=== PATIENT | female | born 1940 | race Caucasian/White ===

== ENCOUNTER 2020-07-12 12:40 | Emergency (ER) | payer OTHER ==
[~2020-07-12] VITALS: Ht 154.9 cm; Wt 120.2 kg
[~2020-07-12 12:40] MED LIST: LOSA25 PO
[2020-07-12 13:19] LABS: BASOPHILS ABSOLUTE AUTO 0.04 K/mm3 (0.00-0.23); BASOPHILS PERCENT AUTO 1 % (0-2); EOSINOPHILS ABSOLUTE AUTO 0.19 K/mm3 (0.00-0.68); EOSINOPHILS PERCENT AUTO 3 % (0-6); Hematocrit 42.6 % (33.0-51.0); Hemoglobin 14.2 g/dL (11.5-16.0); IMMATURE GRAN ABSOLUTE AUTO 0.02 K/mm3 (0.00-0.10); IMMATURE GRAN PERCENT AUTO 0 % (0-1); LYMPHOCYTES ABSOLUTE AUTO 2.37 K/mm3 (0.84-5.20); LYMPHOCYTES PERCENT AUTO 32 % (21-46); MONOCYTES ABSOLUTE AUTO 0.61 K/mm3 (0.16-1.47); MONOCYTES PERCENT AUTO 8 % (4-13); Mean Corpuscular HGB 31.8 pg (26.0-34.0); Mean Corpuscular HGB Conc 33.3 g/dL (31.5-36.5); Mean Corpuscular Volume 95 fL (80-100); Mean Platelet Volume 10.3 fL (9.1-12.4); NEUTROPHILS ABSOLUTE AUTO 4.28 K/mm3 (1.96-9.15); NEUTROPHILS PERCENT AUTO 57 % (41-73); Platelet Count 281 K/mm3 (150-400); RDW Coefficient Variation 13.6 % (11.7-14.2); RDW Standard Deviation 48.7 fL (35.1-46.3); Red Blood Cell Count 4.47 M/mm3 (3.80-5.20); White Blood Cell Count 7.51 K/mm3 (4.00-11.30)
[2020-07-12 13:40] LABS: Alanine Aminotransfer (ALT/SGP 27 U/L (12-78); Albumin, Blood 3.6 g/dL (3.4-5.0); Albumin/Globulin Ratio 0.8 (0.8-1.8); Alk Phos 99 U/L (50-136); Anion Gap 5 mmol/L (6-16); Aspartate Aminotrans (AST/SGOT 41 U/L (12-37); Bilirubin, Total 0.6 mg/dL (0.1-1.0); Blood Urea Nitrogen 14 mg/dL (8-24); Bun/Creatinine Ratio 19.9 (12.0-20.0); CO2, Blood 25 mmol/L (21-32); Calcium, Blood 9.5 mg/dL (8.5-10.1); Chloride, Blood 110 mmol/L (98-108); Globulin, Blood 4.3 g/dL (2.2-4.0); Glomerular Filtration Rate >60 (60-); Glucose, Blood 124 mg/dL (70-99); Potassium, Blood 4.8 mmol/L (3.5-5.5); Sodium, Blood 140 mmol/L (136-145); Total Protein, Blood 7.9 g/dL (6.4-8.2); Troponin I <0.015 ng/mL (0.000-0.040)
[2020-07-12] MEDS ORDERED: FURO80 PO (17:12)
[2020-07-12] MEDS ORDERED: OLME20 PO (17:12)
[2020-07-12] MEDS ORDERED: ASPI81CH PO (17:13)
[2020-07-12] MEDS ORDERED: OMEP20ER PO (17:13)
[2020-07-12] MEDS ORDERED: K-Dur20 MEQ PO (19:34)
== END 2020-07-12 19:38 | disposition home or self-care (01) ==
LOC: ER 12:40
PROVIDERS: Emergency Medicine
DX: R60.0 Localized edema (principal); I10 Essential (primary) hypertension; F17.210 Nicotine dependence, cigarettes, uncomplicated; Z88.1 Allergy status to other antibiotic agents; Z88.5 Allergy status to narcotic agent; Z88.6 Allergy status to analgesic agent; Z88.8 Allergy status to other drugs, medicaments and biological substances; Z79.82 Long term (current) use of aspirin; Z79.899 Other long term (current) drug therapy
CPT/HCPCS: 36415; 80053; 83880; 84484; 85025; 96374; 99284-25; J1940

== ENCOUNTER → 2021-03-29 | Outpatient (CLI) | payer OTHER ==
[~2021-03-29] MED LIST changes: +ASPI81CH PO; +FURO80 PO; +K-Dur20 MEQ PO; +OLME20 PO; +OMEP20ER PO
[2021-03-29 15:30] LABS: BASOPHILS ABSOLUTE AUTO 0.05 K/mm3 (0.00-0.23); BASOPHILS PERCENT AUTO 1 % (0-2); EOSINOPHILS ABSOLUTE AUTO 0.16 K/mm3 (0.00-0.68); EOSINOPHILS PERCENT AUTO 2 % (0-6); Hematocrit 42.4 % (33.0-51.0); Hemoglobin 13.9 g/dL (11.5-16.0); IMMATURE GRAN ABSOLUTE AUTO 0.02 K/mm3 (0.00-0.10); IMMATURE GRAN PERCENT AUTO 0 % (0-1); LYMPHOCYTES ABSOLUTE AUTO 2.26 K/mm3 (0.84-5.20); LYMPHOCYTES PERCENT AUTO 24 % (21-46); MONOCYTES ABSOLUTE AUTO 0.72 K/mm3 (0.16-1.47); MONOCYTES PERCENT AUTO 8 % (4-13); Mean Corpuscular HGB 31.8 pg (26.0-34.0); Mean Corpuscular HGB Conc 32.8 g/dL (31.5-36.5); Mean Corpuscular Volume 97 fL (80-100); Mean Platelet Volume 10.8 fL (9.1-12.4); NEUTROPHILS ABSOLUTE AUTO 6.38 K/mm3 (1.96-9.15); NEUTROPHILS PERCENT AUTO 67 % (41-73); Platelet Count 291 K/mm3 (150-400); RDW Coefficient Variation 13.6 % (11.7-14.2); RDW Standard Deviation 48.7 fL (35.1-46.3); Red Blood Cell Count 4.37 M/mm3 (3.80-5.20); White Blood Cell Count 9.59 K/mm3 (4.00-11.30)
[2021-03-29 15:46] LABS: Alanine Aminotransfer (ALT/SGP 25 U/L (12-78); Albumin, Blood 3.7 g/dL (3.4-5.0); Alk Phos 97 U/L (50-136); Anion Gap 4 mmol/L (6-16); Aspartate Aminotrans (AST/SGOT 24 U/L (12-37); Bilirubin, Total 0.5 mg/dL (0.1-1.0); Blood Urea Nitrogen 17 mg/dL (8-24); CHOL/HDL RATIO 4.6; CO2, Blood 29 mmol/L (21-32); Calcium, Blood 9.1 mg/dL (8.5-10.1); Chloride, Blood 107 mmol/L (98-108); Cholesterol 188 mg/dL (50-200); Creatinine, Blood 0.81 mg/dL (0.40-1.00); Globulin, Blood 3.8 g/dL (2.2-4.0); Glomerular Filtration Rate >60 (60-); Glucose, Blood 144 mg/dL (70-99); HDL Cholesterol 41 mg/dL (>39); LDL/HDL RATIO 2.4; Low Density Lipoprotein Chol 96 mg/dL (0-110); Sodium, Blood 140 mmol/L (136-145); Total Protein, Blood 7.5 g/dL (6.4-8.2); Triglycerides 253 mg/dL (30-160); Very Low Density Lipoprot Chol 50 mg/dL (6-32)
== END | disposition home or self-care (01) ==
LOC: LAB 14:22 → LAB SHORT 14:22
PROVIDERS: Nurse Practitioner Family
DX: E11.51 Type 2 diabetes mellitus with diabetic peripheral angiopathy without gangrene (principal); I70.90 Unspecified atherosclerosis
CPT/HCPCS: 80053; 80061; 83036; 85025

== ENCOUNTER 2021-05-26 13:16 | Emergency (ER) | payer MEDICARE ==
[~2021-05-26] VITALS: Ht 157.5 cm; Wt 127.0 kg
[2021-05-26 14:48] LABS: BASOPHILS ABSOLUTE AUTO 0.05 K/mm3 (0.00-0.23); BASOPHILS PERCENT AUTO 1 % (0-2); EOSINOPHILS PERCENT AUTO 3 % (0-6); Hemoglobin 14.6 g/dL (11.5-16.0); IMMATURE GRAN ABSOLUTE AUTO 0.02 K/mm3 (0.00-0.10); IMMATURE GRAN PERCENT AUTO 0 % (0-1); LYMPHOCYTES PERCENT AUTO 27 % (21-46); MONOCYTES ABSOLUTE AUTO 0.57 K/mm3 (0.16-1.47); MONOCYTES PERCENT AUTO 7 % (4-13); Mean Corpuscular HGB 31.4 pg (26.0-34.0); Mean Corpuscular HGB Conc 33.2 g/dL (31.5-36.5); Mean Corpuscular Volume 95 fL (80-100); Mean Platelet Volume 9.8 fL (9.1-12.4); NEUTROPHILS ABSOLUTE AUTO 4.92 K/mm3 (1.96-9.15); NEUTROPHILS PERCENT AUTO 63 % (41-73); Platelet Count 288 K/mm3 (150-400); RDW Coefficient Variation 13.1 % (11.7-14.2); RDW Standard Deviation 45.8 fL (35.1-46.3); Red Blood Cell Count 4.65 M/mm3 (3.80-5.20); White Blood Cell Count 7.86 K/mm3 (4.00-11.30)
[2021-05-26 15:19] LABS: Alanine Aminotransfer (ALT/SGP 26 U/L (12-78); Albumin, Blood 3.7 g/dL (3.4-5.0); Albumin/Globulin Ratio 0.8 (0.8-1.8); Alk Phos 93 U/L (50-136); Anion Gap 7 mmol/L (6-16); Aspartate Aminotrans (AST/SGOT 28 U/L (12-37); Bilirubin, Total 0.4 mg/dL (0.1-1.0); Blood Urea Nitrogen 20 mg/dL (8-24); Bun/Creatinine Ratio 26.7 (12.0-20.0); CO2, Blood 23 mmol/L (21-32); Calcium, Blood 9.7 mg/dL (8.5-10.1); Chloride, Blood 108 mmol/L (98-108); Creatinine, Blood 0.75 mg/dL (0.40-1.00); Globulin, Blood 4.4 g/dL (2.2-4.0); Glomerular Filtration Rate >60 (60-); Glucose, Blood 122 mg/dL (70-99); Potassium, Blood 4.2 mmol/L (3.5-5.5); Sodium, Blood 138 mmol/L (136-145); Total Protein, Blood 8.1 g/dL (6.4-8.2); Troponin I <0.015 ng/mL (0.000-0.040)
== END 2021-05-26 17:46 | disposition left against medical advice (07) ==
LOC: ER 13:16
PROVIDERS: Physician Assistant
DX: R03.0 Elevated blood-pressure reading, without diagnosis of hypertension (principal); Z53.21 Procedure and treatment not carried out due to patient leaving prior to being seen by health care provider
CPT/HCPCS: 36415; 71046; 80053; 84484; 85025; 93005; 93010; 99283-25

== ENCOUNTER → 2021-09-25 | Outpatient (CLI) | payer MEDICARE ==
[2021-09-25 18:29] LABS: Potassium, Blood 4.1 mmol/L (3.5-5.5)
== END | disposition home or self-care (01) ==
LOC: LAB SHORT 17:10 → LAB 17:10
PROVIDERS: Nurse Practitioner Family
DX: E87.6 Hypokalemia (principal)
CPT/HCPCS: 80051

== ENCOUNTER → 2021-12-06 | Outpatient (CLI) | payer MEDICARE ==
[2021-12-06 18:50] LABS: Potassium, Blood 4.2 mmol/L (3.5-5.5)
== END | disposition home or self-care (01) ==
LOC: LAB SHORT 16:10 → LAB FUT 09-25 15:10
PROVIDERS: Nurse Practitioner Family
DX: E87.6 Hypokalemia (principal)
CPT/HCPCS: 36415; 80051

== ENCOUNTER → 2022-09-04 | Outpatient (CLI) | payer OTHER ==
[~2022-09-04] MED LIST changes: +COLCHICINE0.6 MG PO; +Norco 5-325 Ta1 EACH PO
[2022-09-05 11:01] LABS: Bun/Creatinine Ratio 35.3 (12.0-20.0); Creatinine, Blood 1.36 mg/dL (0.40-1.00); Potassium, Blood 4.1 mmol/L (3.5-5.5)
== END ==
LOC: LAB 16:15 → LAB SHORT 16:15
PROVIDERS: Internal Medicine
DX: M10.9 Gout, unspecified (principal); E11.65 Type 2 diabetes mellitus with hyperglycemia
CPT/HCPCS: 80048; 83036; 84550

== ENCOUNTER → 2022-12-12 | Outpatient (CLI) | payer OTHER ==
[2022-12-12 20:44] LABS: Protein, Urine Quantitative 6.2 mg/dL (0.0-11.9)
[2022-12-12 20:50] LABS: Microalbumin, Urine Quant. <5.000 mg/L (0.000-20.000)
== END | disposition home or self-care (01) ==
LOC: LAB SHORT 12:00 → LAB FUT 12-11 11:05
PROVIDERS: Internal Medicine Nephrology
DX: N18.30 Chronic kidney disease, stage 3 unspecified (principal); D63.1 Anemia in chronic kidney disease; N25.81 Secondary hyperparathyroidism of renal origin; E55.9 Vitamin D deficiency, unspecified; E78.00 Pure hypercholesterolemia, unspecified; R76.9 Abnormal immunological finding in serum, unspecified; R94.5 Abnormal results of liver function studies; R94.6 Abnormal results of thyroid function studies
CPT/HCPCS: 81050; 82043; 82570; 84156

== ENCOUNTER → 2023-07-05 | Outpatient (CLI) | payer OTHER ==
[2023-07-05 11:42] LABS: Uric Acid, Blood 8.8 mg/dL (2.6-6.0)
[2023-07-05 11:48] LABS: Alanine Aminotransfer (ALT/SGP 21 U/L (12-78); Albumin, Blood 3.3 g/dL (3.4-5.0); Albumin/Globulin Ratio 0.8 (0.8-1.8); Alk Phos 85 U/L (50-136); Anion Gap 5 mmol/L (6-16); Aspartate Aminotrans (AST/SGOT 17 U/L (12-37); Bilirubin, Direct <0.1 mg/dL (0.0-0.3); Bilirubin, Indirect Unable to Calculate mg/dL (0.1-0.7); Bilirubin, Total 0.3 mg/dL (0.1-1.0); Blood Urea Nitrogen 28 mg/dL (8-24); Bun/Creatinine Ratio 24.6 (12.0-20.0); CO2, Blood 25 mmol/L (21-32); Calcium, Blood 9.3 mg/dL (8.5-10.1); Chloride, Blood 108 mmol/L (98-108); Creatinine, Blood 1.14 mg/dL (0.40-1.00); Globulin, Blood 4.2 g/dL (2.2-4.0); Glomerular Filtration Rate 47 (60-); Glucose, Blood 180 mg/dL (70-99); Phosphorus, Blood 2.5 mg/dL (2.5-4.9); Potassium, Blood 3.7 mmol/L (3.5-5.5); Sodium, Blood 138 mmol/L (136-145); Total Protein, Blood 7.5 g/dL (6.4-8.2)
== END ==
LOC: LAB 09:47 → LAB SHORT 09:47 → LAB FUT 10-17 14:10
PROVIDERS: Internal Medicine Nephrology
DX: N18.30 Chronic kidney disease, stage 3 unspecified (principal); D63.1 Anemia in chronic kidney disease; M10.9 Gout, unspecified; R94.5 Abnormal results of liver function studies
CPT/HCPCS: 36415; 80053; 82248; 84100; 84550; 85018

== ENCOUNTER 2024-01-30 15:23 | Inpatient (IN) | payer OTHER ==
[~2024-01-30] VITALS: Ht 167.6 cm; Wt 117.8 kg
[2024-01-30] VITALS (9 sets, daily range): BP systolic 101–130; BP diastolic 53–69
[2024-01-30] MEDS ORDERED: Furosemide 10 MG/ML 10ML Vial IV ONE (15:35)
[2024-01-30 15:39] LABS: Base Excess Venous -8.1 mmol/L; Bicarbonate Venous 17.2 mmol/L (24.0-30.0)
[2024-01-30 15:40] LABS: PCO2 Venous 66.3 mmHg (38-42); pH Blood Venous 7.11 (7.34-7.37)
[2024-01-30 15:43] LABS: Hematocrit 44.2 % (33.0-51.0); Mean Corpuscular HGB Conc 31.7 g/dL (31.5-36.5); Mean Corpuscular Volume 98 fL (80-100); Platelet Count 371 K/mm3 (150-400); RDW Standard Deviation 54.2 fL (35.1-46.3); Red Blood Cell Count 4.52 M/mm3 (3.80-5.20); White Blood Cell Count 12.84 K/mm3 (4.00-11.30)
[2024-01-30] MEDS ORDERED: ALLOPURINOL100 M1 PO (15:58)
[2024-01-30] MEDS ORDERED: Simvastatin20 MG PO (15:58)
[2024-01-30] MEDS ORDERED: METFORMIN HCL500 M2 PO (15:58)
[2024-01-30] MEDS ORDERED: CHLO25B PO (15:58)
[2024-01-30] MEDS ORDERED: OMEP20ER PO (15:58)
[2024-01-30 16:03] LABS: Albumin, Blood 3.6 g/dL (3.4-5.0); Albumin/Globulin Ratio 0.8 (0.8-1.8); Bilirubin, Total 0.4 mg/dL (0.1-1.0); Bun/Creatinine Ratio 16.5 (12.0-20.0); Calcium, Blood 9.5 mg/dL (8.5-10.1); Creatinine, Blood 1.09 mg/dL (0.40-1.00); Globulin, Blood 4.6 g/dL (2.2-4.0); Magnesium, Blood 2.5 mg/dL (1.6-2.4); Potassium, Blood 3.6 mmol/L (3.5-5.5); Total Protein, Blood 8.2 g/dL (6.4-8.2)
[2024-01-30 16:11] LABS: BASOPHILS PERCENT MAN 0 % (0-2); EOSINOPHILS ABSOLUTE MAN 0.25 K/mm3 (0.00-0.68); EOSINOPHILS PERCENT MAN 2 % (0-6); LYMPHOCYTES % ATYPICAL MANUAL 3 % (0-0); LYMPHOCYTES ABSOLUTE MAN 6.16 K/mm3 (0.84-5.20); LYMPHOCYTES PERCENT MAN 45 % (21-46); MONOCYTES ABSOLUTE MAN 0.64 K/mm3 (0.16-1.47); MONOCYTES PERCENT MAN 5 % (4-13); NEUTROPHILS ABSOLUTE MAN 5.77 K/mm3 (1.96-9.15); SEG NEUTROPHILS PERCENT MAN 45 % (41-73); TOTAL CELLS COUNTED 100
[2024-01-30] MEDS ORDERED: Albuterol 2.5 MG/3 ML VIAL INH ONE (16:15)
[2024-01-30] MEDS ORDERED: Ondansetron HCl 2 MG / ML 2ML Vial IV PRN (17:25)
[2024-01-30] MEDS ORDERED: Insulin Human Lispro 100 Units/ML 3ML Syringe SC SCH (18:00)
[2024-01-30] MEDS ORDERED: Furosemide 10 MG/ML 4ML Vial IV SCH (18:00)
[2024-01-30 18:31] LABS: Base Excess Venous -1.7 mmol/L; Bicarbonate Venous 22.7 mmol/L (24.0-30.0); PCO2 Venous 45 mmHg (38-42); pH Blood Venous 7.34 (7.34-7.37)
--- NOTE | 2024-01-30 18:42 | NUR ---
ADMISSION PATIENT ARRIVED TO ICU @ 1805. NITRO GTT @ 100MCG/MIN. BIPAP IN PLACE 10/02 70% FIO2. PATIENT IS AWAKE AND ALERT RESPONDING TO STAFF APPROPRIATELY. C/O RT HIP PAIN THAT IS PRESENT AT BASELINE. MALDONADO PRESENT. 20G PIV IN RT HAND AND IN LT AC. FAMILY AT BEDSIDE.
[2024-01-30] MEDS ORDERED: Ipratropium/Albuterol SulF 2.5-0.5MG/3 ML Amp INH ONE (19:05)
[2024-01-30 20:37] LABS: Source, Urine Foley catheter
--- NOTE | 2024-01-30 20:39 | NUR ---
UPDATE: PT REPORTING 5/10 CHEST/EPIGASTRIC PRESSURE. REPEAT EKG OBTAINED AND NITRO TITRATED TO 150MCG/KG/MIN. HOSPITALIST CALLED AND UPDATED AND ORDERS NITRO TO BE TITRATED DOWN TO SYSTOLIC OF [address] ORDERS TO CONTROL PAIN. WILL CONTINUE TO MONITOR.
[2024-01-30] MEDS ORDERED: Morphine Sulfate 4 MG/1 ML Injection IV PRN (20:40)
[2024-01-30] MEDS ORDERED: Mag Hydrox/Al Hydrox/Simeth 18 ML,Lidocaine 2% Viscous Soln 9 ML,Atropine/Scopalam/Hyos... PO ONE (20:50)
[2024-01-30 20:56] LABS: Appearance, Urine Clear (Clear); Bilirubin, Urine Neg (Neg); Blood, Urine Neg (Neg); Glucose Qualitative, Urine Neg (Neg); Ketones, Urine Neg (Neg); Leukocyte Esterase, Urine 2+ (Neg); Nitrite, Urine Neg (Neg); Protein, Urine Neg (Neg); Specific Gravity, Urine 1.015 (1.003-1.022); Urobilinogen, Urine NORM (Normal)
[2024-01-30] MEDS ORDERED: Atorvastatin 10 MG Tab PO SCH (21:00)
[2024-01-30 21:05] LABS: Color, Urine Pale Yellow (P-Yellow)
[2024-01-30 21:07] LABS: Bacteria Mod /hpf; Red Blood Cells, Urine 0-2 /hpf (0-2); Squamous Epithelial Cells Few /hpf (Few)
[2024-01-30 21:26] LABS: Influenza A, PCR NEGATIVE (NEGATIVE); Influenza B, PCR NEGATIVE (NEGATIVE); Resp Syncytial Virus, PCR NEGATIVE (NEGATIVE); SARS-Cov-2 (COVID-19) PCR, MMC NEGATIVE (NEGATIVE)
[2024-01-31] VITALS (45 sets, daily range): BP systolic 102–160; BP diastolic 49–115
--- NOTE | 2024-01-31 02:15 | NUR ---
RT TO BEDSIDE TO PLACE PT BACK ONTO BIPAP WHILE SHE SLEEPS
[2024-01-31 03:24] LABS: Hematocrit 33.5 % (33.0-51.0); Hemoglobin 10.7 g/dL (11.5-16.0); Mean Corpuscular HGB 30.9 pg (26.0-34.0); Mean Corpuscular HGB Conc 31.9 g/dL (31.5-36.5); Mean Corpuscular Volume 97 fL (80-100); Mean Platelet Volume 10.3 fL (9.1-12.4); Platelet Count 228 K/mm3 (150-400); RDW Coefficient Variation 15.1 % (11.7-14.2); RDW Standard Deviation 54.5 fL (35.1-46.3); Red Blood Cell Count 3.46 M/mm3 (3.80-5.20); White Blood Cell Count 10.87 K/mm3 (4.00-11.30)
[2024-01-31 03:45] LABS: Bun/Creatinine Ratio 17.6 (12.0-20.0); Calcium, Blood 8.3 mg/dL (8.5-10.1); Creatinine, Blood 1.02 mg/dL (0.40-1.00); Potassium, Blood 3.8 mmol/L (3.5-5.5)
[2024-01-31] MEDS ORDERED: Omeprazole 20 MG CapCR PO SCH (06:00)
--- NOTE | 2024-01-31 06:33 | NUR ---
END OF SHIFT SUMMARY NO ACUTE EVENTS OVER NIGHT. SHE IS ABLE TO TAKE BREAKS OFF THE BIPAP SUCESSFULLY BEING ON 4L NC; VBG ALSO IMPROVED. SHE HAS A POOR UNDERSTANDING OF DISEASE PROCESS AND WANTS TO "GET BETTER" BUT IS ALSO "DONE WITH ALL OF THIS". SHE IS A/O X4 AND ABLE TO MAKE HER NEEDS KNOWN; CAN BE UNCOMFORTABLE AT TIMES BUT REPOSITIONING HELPS. SPO2 >97% ON 4L NC AND WITH BIPAP SETTINGS 12/6, FIO2 70%. AFEBRILE. HR 70'S. SBP 130'S WITH THE NITRO BEING PLACED ON SB AT 2300; CHEST PRESSURE IMPROVED AFTER GI COCKTAIL. PT TOLERATING SIPS OF WATER WELL WHEN TAKING BREAKS OFF BIPAP. MALDONADO INPLACE AND DRAINING TO GRAVITY. WILL REPORT TO AM RN WHEN AVIALBLE.
[2024-01-31] MEDS ORDERED: Furosemide 10 MG/ML 4ML Vial IV SCH (09:00)
[2024-01-31] MEDS ORDERED: Losartan Potassium 50 MG Tab PO SCH (09:00)
[2024-01-31] MEDS ORDERED: Enoxaparin 40 MG/0.4 ML SYR SC SCH (09:00)
[2024-01-31] MEDS ORDERED: Atorvastatin 40 MG Tab PO SCH (09:00)
[2024-01-31] MEDS ORDERED: Aspirin 325 MG Tab PO SCH (09:00)
[2024-01-31] MEDS ORDERED: Allopurinol 100 MG Tab PO SCH (09:00)
[2024-01-31] MEDS ORDERED: Aspirin 81 MG Chew PO SCH (09:00)
[2024-01-31] MEDS ORDERED: HydroCHLOROthiazide 25 mg Tab PO SCH (09:00)
--- NOTE | 2024-01-31 09:34 | NUR ---
PT A/O X4. C/O "GRINDING", "HEAVY" CHEST PRESSURE. GOT EKG AND TROPONIN WAS DRAWN. UPDATED DR. DELANEY, DR. WALTERS, AND DR. JASMINE. DR. VIVAR CONSULTED BY DR. WALTERS. MORPHINE GIVEN FOR CHEST PAIN. WILL BE STARTING HEPARIN GTT PER PHARMACY.
[2024-01-31 09:39] LABS: Anti-Xa UFH, PHA Monitoring <0.10 IU/mL; International Normalized Ratio 1.04; Prothrombin Time Results 10.9 Sec (9.7-11.5)
[2024-01-31] MEDS ORDERED: Carvedilol 6.25 MG Tab PO SCH (10:00)
[2024-01-31] MEDS ORDERED: Dose Adjust by Pharmacy XX STA ×2 (10:22→17:07)
[2024-01-31] MEDS ORDERED: Heparin Sodium,Porcine/0.5 NS 500 ML IV SCH (10:25)
[2024-01-31] MEDS ORDERED: Heparin Sodium 5000 Units/ML 1ML MDV IV ONE (10:25)
--- NOTE | 2024-01-31 10:51 | NUR ---
"Spiritual Care Visit | Pt. Request Pt. is awake in bed and welcomes my visit. Pt. is pleasant, but unsettled about the current state of her health. As I facilitate a life review Pt. had personal questions about yovana and belief. This embroidery designer considered the multi-yovana background of the Pt. and pastoral counseling department chair is given. The Life review kept circling back to the concern about her wanting to be ready for heaven. Listened with empathy and a calming presence. Asked leading questions to assess what kind of spiritual care the Pt. was requesting and required. Prayed prayers of confession and hope based on the finished work of the Cross. Pt. verbalized gratitude for the Spiritual Care visit. The embroidery designer also provided the Pt. with a copy of the NT/Psalms provided by the hospital."
[2024-01-31] MEDS ORDERED: Losartan Potassium 50 MG Tab PO ONE (14:10)
[2024-01-31] MEDS ORDERED: Doxycycline Hyclate 100 MG TAB PO SCH (15:00)
[2024-01-31 17:07] LABS: Bun/Creatinine Ratio 15.4 (12.0-20.0); Creatinine, Blood 1.04 mg/dL (0.40-1.00); Potassium, Blood 3.4 mmol/L (3.5-5.5)
[2024-01-31] MEDS ORDERED: Potassium Chloride 20 MEQ TabCR PO ONE (17:40)
--- NOTE | 2024-01-31 18:08 | NUR ---
SUMMARY PT A/O X4. HAD "GRINDING" "HEAVY" CHEST PRESSURE THIS AM. IMPROVED THE DAY WENT ON. HEPARIN GTT STARTED. DR. VIVAR CONSULTED TODAY, NO PLANS FOR INTERVENTION. TROPONINS CONTINUE TO CLIMB. GETS SOB WITH EXERTION. LASIX GIVEN TODAY AND PT HAVING A LOT OF OUTPUT. REMAINS ON 2L NC. POTASSIUM PO GIVEN TONIGHT. GOT TO SIDE OF BED THIS AFTERNOON WITH ASSIST THEN BACK TO BED. HAS CHRONIC PAIN IN R HIP AND ANKLE. MORPHINE GIVEN PRN AND ENCOURAGED PT TO REPOSITION IN BED. REPORTING OFF TO NOC RN.
[2024-01-31 19:28] LABS: Acinetobacter baumannii DNA Not Detected copy/mL (NOT DETECT); Adenovirus DNA Not Detected (NOT DETECT); Chlamydia pneumonia Not Detected (NOT DETECT); Enterobacter cloacae DNA Not Detected copy/mL (NOT DETECT); Escherichia coli DNA Not Detected copy/mL (NOT DETECT); Haemophilus influenzae DNA Not Detected copy/mL (NOT DETECT); Human Coronavirus RNA Not Detected (NOT DETECT); Human Metapneumovirus RNA Not Detected (NOT DETECT); Influenza virus A RNA Not Detected (NOT DETECT); Influenza virus B RNA Not Detected (NOT DETECT); Klebsiella aerogenes DNA Not Detected copy/mL (NOT DETECT); Klebsiella oxytoca DNA Not Detected copy/mL (NOT DETECT); Klebsiella pneumoniae DNA Not Detected copy/mL (NOT DETECT); Legionella pneumophila Not Detected (NOT DETECT); Moraxella catarrhalis DNA Not Detected copy/mL (NOT DETECT); Mycoplasma pneumoniae Not Detected (NOT DETECT); Parainfluenza virus RNA Not Detected (NOT DETECT); Proteus sp DNA Not Detected copy/mL (NOT DETECT); Pseudomonas aeruginosa DNA Not Detected copy/mL (NOT DETECT); Respiratory syncytial Vir RNA Not Detected (NOT DETECT); Rhinovirus+Enterovirus RNA Not Detected (NOT DETECT); Serratia marcescens DNA Not Detected copy/mL (NOT DETECT); Staphylococcus aureus DNA Not Detected copy/mL (NOT DETECT); Streptococcus agalactiae DNA Detected Bin 10^6 copy/mL (NOT DETECT); Streptococcus pneumoniae DNA Not Detected copy/mL (NOT DETECT); Streptococcus pyogenes DNA Not Detected copy/mL (NOT DETECT)
[2024-02-01] VITALS (21 sets, daily range): BP systolic 90–137; BP diastolic 27–96
[2024-02-01] MEDS ORDERED: Acetaminophen 325 MG TABLET PO PRN (00:50)
[2024-02-01 03:37] LABS: Hematocrit 32.8 % (33.0-51.0); Hemoglobin 10.9 g/dL (11.5-16.0); Mean Corpuscular HGB 30.8 pg (26.0-34.0); Mean Corpuscular HGB Conc 33.2 g/dL (31.5-36.5); Mean Corpuscular Volume 93 fL (80-100); Mean Platelet Volume 10.4 fL (9.1-12.4); Platelet Count 235 K/mm3 (150-400); RDW Standard Deviation 51.2 fL (35.1-46.3); Red Blood Cell Count 3.54 M/mm3 (3.80-5.20); White Blood Cell Count 11.12 K/mm3 (4.00-11.30)
[2024-02-01 04:04] LABS: Bun/Creatinine Ratio 14.5 (12.0-20.0); Calcium, Blood 8.5 mg/dL (8.5-10.1); Creatinine, Blood 1.17 mg/dL (0.40-1.00); Magnesium, Blood 1.8 mg/dL (1.6-2.4); Potassium, Blood 3.5 mmol/L (3.5-5.5)
--- NOTE | 2024-02-01 07:19 | NUR ---
SHIFT SUMMARY: NO ACUTE CHANGES OVERNIGHT; VSS THROUGHOUT THE SHIFT. PT HAD C/O PAIN IN R. HIP AND ANKLE THAT SHE REPORTS CHRONIC AND RATES IT A 8/10; PRN MORPHINE AND TYLENOL ADMINISTERED. PT STATES PAIN RELIEF TO 3/10 PAIN BUT RELIEF DOES NOT LAST LONG. PT DENIES CHEST PAIN/PRESSURE THROUGHOUT THE ENTIRE SHIFT. PT EXPIRATIONAL WHEEZES IN ALL LUNG WOODS WITH DIM BASES. PT HAD 2 L OF URINE OUTPUT THIS SHIFT, AND A SMEAR BOWEL MOVEMENT; CATHETER CARE PERFORMED. DENTURES SOAKING THIS SHIFT BUT PT DECLINES ORAL CARE AT THIS TIME. PT ABLE TO HELP TURN IN BED WITH MODERATE HELP. HEPARIN GTT @ 15 UNITS/HR. CALL LIGHT IN REACH.
[2024-02-01] MEDS ORDERED: Insulin Human Lispro 100 Units/ML 3ML Syringe SC SCH (07:30)
[2024-02-01] MEDS ORDERED: Losartan Potassium 50 MG Tab PO SCH (09:00)
[2024-02-01] MEDS ORDERED: CefTRIAXone Sodium 1,000 MG in NS 100 ML IV SCH (09:00)
[2024-02-01] MEDS ORDERED: Aspirin 81 MG Chew PO SCH (09:00)
--- NOTE | 2024-02-01 11:17 | NUR ---
PT A/O X4. DENIES CP OR PRESSURE. MORE CONCERNED WITH R LEG/KNEE PAIN. PT STATES THIS HAS BEEN A PROBLEM FOR ABOUT 3 MONTHS. GOT PT OOB TO RECLINER THIS AM IN HOPES IT WOULD HELP WITH PAIN. PT IS 2 PERSON ASSIST WITH GAITBELT AND FWW. PT IS WEAK IN LE'S. PT/OT ORDERED. PT TRANSFERED TO U 16 VIA W/C. NO SIGN OF DISTRESS SHE LEAVES THE UNIT.
--- NOTE | 2024-02-01 11:37 | NUR ---
arrival from icu patient arrived to pcu 16 from icu 11 at 1110. patient transferd to pcu bed from wheelchair with a two person assist gait belt and front wheel walker. vital signs stable. tele sinus rhythm 85. spo2 >90% on room air. patient is alert and oriented x4. perrla. neuro is intact. patient reports pain in right hip, rated at 5, received tylenol per emar. patient denies chest pain/pressure or shortness of breath. see shift assessment for further detials. herpain drip infusing see emar. leon cath draining with gravity, yellow coloration.
[2024-02-01] MEDS ORDERED: Potassium Chloride 20 MEQ TabCR PO ONE (12:00)
[2024-02-01] MEDS ORDERED: Clopidogrel Bisulfate 300 MG Cap PO ONE (13:15)
--- NOTE | 2024-02-01 17:56 | NUR ---
shift summary patient neuro remains intact. patient calls appropriately to make needs known. vital signs remain stable. update both son and daughter. plan of care remains up to date, see previous charting and md notes.
[2024-02-02 04:00] VITALS: BP 117/52
[2024-02-02 05:15] LABS: Hematocrit 33.2 % (33.0-51.0); Hemoglobin 11.1 g/dL (11.5-16.0); Mean Platelet Volume 10.6 fL (9.1-12.4); Platelet Count 225 K/mm3 (150-400)
[2024-02-02] MEDS ORDERED: Dose Adjust by Pharmacy XX STA (05:32)
--- NOTE | 2024-02-02 05:47 | NUR ---
SHIFT SUMMARY PT A&O X4, MILD FORGETFULNESS/CONFUSION NOTED IN THE MIDDLE OF THE NIGHT WHEN PT AWAKENED; PT THOUGHT WAS AT HOME AND PEOPLE WERE IN THE HOUSE, PT TOOK TELEMETRY AND LINES OFF SEVERAL TIMES. HOWEVER PT ABLE TO BE REORIENTD AND FINALLY ABLE TO RELAX/REST SOME. VS; SBP 103 - 117, SR WITH RATE IN 80'S, AFEBRILE, SPO2 94-98% ON 2 LPM NC. PT CONTINUES WITH LOOSE, PRODUCTIVE COUGH AND IS ABLE TO CLEAR INDEPENDENTLY. MALDONADO IN PLACE AND DRAINING TO GRAVITY; PT WITH 1525 MLS UOP THIS SHIFT. NO BM. PT CONTINUES TO C/O CHRONIC PAIN IN "BACK" AND ALSO PAIN IN "HIP/GROIN" AREA. MEDICATION, REPOSITIONING AND REST FOR MANAGING PAIN. PT ABLE TO RESPOSITION INDEPENDENTLY AND SIT UP TO EOB; AT TIMES NEEDS ASSISTANCE FOR BOOSTING AND READJUSTNG PILLOWS. PT C/O "BEING WORN OUT AND TIRED" AND "READY TO GET BACK HOME". CALL LIGHT IN REACH, ABLE TO MAKE NEEDS KNOWN. WILL UPDATE ONCOMING RN
[2024-02-02 07:43] VITALS: BP 140/68
[2024-02-02 08:23] LABS: Bun/Creatinine Ratio 17.5 (12.0-20.0); Calcium, Blood 8.8 mg/dL (8.5-10.1); Creatinine, Blood 1.43 mg/dL (0.40-1.00); Potassium, Blood 3.3 mmol/L (3.5-5.5)
--- NOTE | 2024-02-02 08:43 | NUR ---
I SPOKE W/ DR. SANCHEZ ABOUT THE PT HAVING A 3.21 SEC PAUSE THIS MORNING AT 0816. THE PT WAS ASYMPTOMATIC DURING THIS EPISODE. ALSO, I LET THE KNOW OF THE PT'S K BEING 3.3 AND HER HAVING WORSENING KIDNEY FUNCTION. THE PT IS W/O CRACKLES IN HER LUNGS AND HER LEGS ARE VERY DRIED UP W/O ANY EDEMA. DR. MARIE SAID TO HOLD THE LASIX FOR NOW, AND SHE WILL COME DOWN TO SEE THE PT.
[2024-02-02] MEDS ORDERED: Clopidogrel Bisulfate 75 MG Tab PO SCH (09:00)
[2024-02-02] MEDS ORDERED: Potassium Chloride 10 Meq Tablet SA PO ONE (09:00)
[2024-02-02] MEDS ORDERED: Lactobacil 2-S.Thermo-Bifido 1 1 Cap PO SCH (09:00)
[2024-02-02] MEDS ORDERED: Polyethylene Glycol 3350 17 gm PO PRN (09:55)
[2024-02-02] MEDS ORDERED: Furosemide 10 MG / ML 2ML Vial IV SCH (09:55)
[2024-02-02] MEDS ORDERED: Enoxaparin 40 MG/0.4 ML SYR SC SCH (11:00)
[2024-02-02 11:25] VITALS: BP 91/56
[2024-02-02 11:30] LABS: Magnesium, Blood 1.8 mg/dL (1.6-2.4)
[2024-02-02 15:32] VITALS: BP 135/72
--- NOTE | 2024-02-02 16:56 | NUR ---
SHIFT SUMMARY PT IS A&OX4, AND IS ABLE TO MAKE HER NEEDS KNOWN. THE PT IS A 1-2P ASSIST W/ FWW TO THE BSC AND CHAIR. SHE HAS BEEN IN THE CHAIR MOST OF THE DAY AND HAD A BEDBATH. SHE HAS BEEN TITRAITED OFF OXYGEN AND HER SP02 >94% ON RA. ON TELE SHE HAS BEEN SR 70'S, BUT DID HAVE THAT 3.21 SEC PAUSE THIS MORNING. BP STABLE. SHE HAS NEEDED REMINDERS ABOUT NOT TRANSFERING HERSELF BECAUSE SHE HAS MOVED FROM THE CHAIR TO THE BED AND FROM THE BSC TO THE CHAIR. THE PT HAS HAD NO ACUTE EVENTS TODAY AND IS NOW MEDICAL WITH TELE. SEE NOTES FOR ANY UPDATES.
[2024-02-02 20:00] VITALS: BP 115/58
[2024-02-02] MEDS ORDERED: Docusate Sodium/Senna 1 Tab PO SCH (21:00)
[2024-02-02] MEDS ORDERED: Docusate Sodium 100 MG Cap PO SCH (21:00)
[2024-02-02] MEDS ORDERED: Diabetic GuaiFENesin 100 MG/5 ML 5MLUDC PO SCH (21:00)
[2024-02-03 02:46] VITALS: BP 121/63
--- NOTE | 2024-02-03 02:53 | NUR ---
TRANSFER OF CARE PT TRANSFERRED TO MEDICAL FLOOR VIA HOSPITAL BED, REPORT TO DAYTON RINCON. PT A&O X4, VSS, ON RA AT TIME OF TRANSFER. PT BELONGINGS SENT WITH PT. MALDONADO CATHETER IN PLACE AND DRAINING TO GRAVITY. NO ACUTE EVENTS DURING THE SHIFT; VSS. PT CONTINUES TO COMPLAIN OF PAIN BUT UNABLE TO VERBALIZE EXACTLY WHERE. AT TIMES PT STATES IS "IN GROIN OR HIP" "BUTTHOLE" OR "LEGS". PT UNABLE TO PINPOINT AND EXPLAIN PAIN. OTHERWISE, PT RESTED ON AND OFF T/O SHIFT. MALDONADO WITH 1350 URINE OUTPUT. PT HAVING FREQUENT SOFT STOOLS. PER PCT PT HAD AROUND 5-6 THIS NOC SHIFT. PM STOOL SOFTNERS HELD. CBG STABLE, NO COVERAGE INDICATED. PT AMBULATING TO BSC WITH 2 PERSON ASSIST, FWW AND GAIT BELT. PT TOLERATING FAIRLY. OF NOTE TELEMETRY NOTIFIED THIS RN OF 2.11 SEC PAUSE DURING THE SHIFT (SEE TELEMETRY STRIP).
[2024-02-03] MEDS ORDERED: Potassium Chlo20 ME1 PO (03:09)
[2024-02-03] MEDS ORDERED: METOPROLOL SUCC25 MG PO (03:19)
[2024-02-03 05:19] LABS: BASOPHILS ABSOLUTE AUTO 0.03 K/mm3 (0.00-0.23); BASOPHILS PERCENT AUTO 0 % (0-2); EOSINOPHILS ABSOLUTE AUTO 0.06 K/mm3 (0.00-0.68); EOSINOPHILS PERCENT AUTO 1 % (0-6); Hematocrit 33.1 % (33.0-51.0); Hemoglobin 10.9 g/dL (11.5-16.0); IMMATURE GRAN ABSOLUTE AUTO 0.04 K/mm3 (0.00-0.10); IMMATURE GRAN PERCENT AUTO 0 % (0-1); LYMPHOCYTES ABSOLUTE AUTO 1.54 K/mm3 (0.84-5.20); LYMPHOCYTES PERCENT AUTO 14 % (21-46); MONOCYTES ABSOLUTE AUTO 1.23 K/mm3 (0.16-1.47); MONOCYTES PERCENT AUTO 11 % (4-13); Mean Corpuscular HGB 30.7 pg (26.0-34.0); Mean Corpuscular HGB Conc 32.9 g/dL (31.5-36.5); Mean Corpuscular Volume 93 fL (80-100); Mean Platelet Volume 11.5 fL (9.1-12.4); NEUTROPHILS ABSOLUTE AUTO 8.45 K/mm3 (1.96-9.15); NEUTROPHILS PERCENT AUTO 74 % (41-73); Platelet Count 247 K/mm3 (150-400); RDW Coefficient Variation 14.8 % (11.7-14.2); RDW Standard Deviation 50.7 fL (35.1-46.3); Red Blood Cell Count 3.55 M/mm3 (3.80-5.20); White Blood Cell Count 11.35 K/mm3 (4.00-11.30)
[2024-02-03 06:07] LABS: Albumin, Blood 2.8 g/dL (3.4-5.0); Albumin/Globulin Ratio 0.7 (0.8-1.8); Bilirubin, Total 0.6 mg/dL (0.1-1.0); Bun/Creatinine Ratio 22.3 (12.0-20.0); Creatinine, Blood 1.39 mg/dL (0.40-1.00); Globulin, Blood 4.1 g/dL (2.2-4.0); Potassium, Blood 3.4 mmol/L (3.5-5.5); Total Protein, Blood 6.9 g/dL (6.4-8.2)
[2024-02-03 07:36] VITALS: BP 137/59
[2024-02-03] MEDS ORDERED: Potassium Chloride 20 MEQ/15 ML UDC PO SCH (09:00)
[2024-02-03] MEDS ORDERED: Torsemide 20 MG TAB PO SCH (09:00)
--- NOTE | 2024-02-03 09:00 | NUR ---
Pt laying in bed awake a/ox4, pleasant and cooperative with care, follows commands well, reports pain to her bottom, lungs are clear in upper garcia, dim/wheeze to bases, resp even and unlabored, no cough noted, hrr, tele in place running sr in the 70's, trace edema noted to b/l le, ppp+2, cap refill <3 sec, vs stable, afebrile, iv to rwrist area, flushes well, btx4, abd flat soft nontender, voids without diff, skin c/w/d, maew, susan, call light in reach.
[2024-02-03] MEDS ORDERED: Potassium Chloride 20 MEQ TabCR PO ONE (09:10)
--- NOTE | 2024-02-03 11:13 | NUR ---
pt/ot worked with pt, got her to chair, she states the change of position helped the bottom pain, call light in reach.
[2024-02-03 15:41] VITALS: BP 109/60
--- NOTE | 2024-02-03 18:35 | NUR ---
pt sat up in a chair most of the day, she is doing ok, no complaints or acute changes this shift, makes her needs known, call light in reach.
[2024-02-03 19:30] VITALS: BP 111/50
[2024-02-04 00:57] VITALS: BP 156/63
--- NOTE | 2024-02-04 01:38 | NUR ---
TELE *LATE ENTRY* AT 1253, INFORMED BY BUS INSPECTOR PT HAD 2.7 SEC PAUSE. STATED THEIR HR TRENDED SINUSBRADY HR 40'S PRIOR TO PAUSE. PT BACK TO SINUS RHYTHM HR 70'S WHEN TECH CALLED TO INFORM THIS NURSE. CHECKED VITALS, STABLE. PT DENIES CP, PRESSURE OR DYSPNEA. INFORMED CHARGE NURSE KADEEM Collier OF TELE CHANGES. WILL MONITOR.
[2024-02-04 02:16] VITALS: BP 149/81
[2024-02-04 05:12] LABS: BASOPHILS ABSOLUTE AUTO 0.03 K/mm3 (0.00-0.23); BASOPHILS PERCENT AUTO 0 % (0-2); EOSINOPHILS ABSOLUTE AUTO 0.13 K/mm3 (0.00-0.68); EOSINOPHILS PERCENT AUTO 2 % (0-6); Hematocrit 32.1 % (33.0-51.0); Hemoglobin 10.7 g/dL (11.5-16.0); IMMATURE GRAN ABSOLUTE AUTO 0.03 K/mm3 (0.00-0.10); IMMATURE GRAN PERCENT AUTO 0 % (0-1); LYMPHOCYTES ABSOLUTE AUTO 1.65 K/mm3 (0.84-5.20); LYMPHOCYTES PERCENT AUTO 19 % (21-46); MONOCYTES ABSOLUTE AUTO 0.98 K/mm3 (0.16-1.47); MONOCYTES PERCENT AUTO 11 % (4-13); Mean Corpuscular HGB 30.7 pg (26.0-34.0); Mean Corpuscular HGB Conc 33.3 g/dL (31.5-36.5); Mean Corpuscular Volume 92 fL (80-100); Mean Platelet Volume 11.4 fL (9.1-12.4); NEUTROPHILS ABSOLUTE AUTO 6.05 K/mm3 (1.96-9.15); NEUTROPHILS PERCENT AUTO 68 % (41-73); Platelet Count 268 K/mm3 (150-400); RDW Coefficient Variation 14.8 % (11.7-14.2); RDW Standard Deviation 49.6 fL (35.1-46.3); Red Blood Cell Count 3.49 M/mm3 (3.80-5.20); White Blood Cell Count 8.87 K/mm3 (4.00-11.30)
[2024-02-04 05:44] LABS: Bun/Creatinine Ratio 25.9 (12.0-20.0); Calcium, Blood 8.9 mg/dL (8.5-10.1); Creatinine, Blood 1.35 mg/dL (0.40-1.00); Magnesium, Blood 2.1 mg/dL (1.6-2.4); Potassium, Blood 3.6 mmol/L (3.5-5.5)
--- NOTE | 2024-02-04 06:02 | NUR ---
SHIFT SUMMARY AT 0515 DATA INTEGRATION ARCHITECT INFORMED ME PT HAD 9B RUN VTACH. OTHERWISE TELE RUNNING NSR HR 70'S. INFORMED DR GARDNER, HE STATED TO ENSURE CBC, BMP & MAG WERE ORDERED FOR THIS AM. AOX4. VSS. SPO2 >90% ON RA. DENIES DYSPNEA. E/U RESP. BS DIM T/O. REPORTS NUMBNESS TO RLE. +1 EDEMA BLE. MALDONADO DRAINING CLEAR YELLOW URINE. PT UP 1P ASSIST c FWW & GB THIS SHIFT. REPORTS 8/10 PAIN ALLOVER BODY, HIPS, R KNEE, MEDICATED THIS AM c TYLENOL & NO FURTHER DISCOMFORT REPORTED. CALL LIGHT IN REACH, WILL MONITOR.
[2024-02-04 07:25] VITALS: BP 109/48
[2024-02-04 09:06] VITALS: BP 139/74
[2024-02-04 15:52] VITALS: BP 133/66
--- NOTE | 2024-02-04 18:18 | NUR ---
PATIENT AND FAMILY STATE THIS AFTERNOON THAT SHE IS AGREABLE TO ANY INTERVENTION RECCOMENDED BY CARDIOLOGY. SIGNED PROCEDURE CONSENT LEFT FOR PATIENT CHART THIS AFTERNOON. DR BARRIGA WAS NOTIFIED BY THIS FURNITURE SALESPERSON AT 1817, HE STATES HE WAS NOT AWARE OF THIS PLAN PRIOR TO THIS PHONE CALL.
--- NOTE | 2024-02-04 18:22 | NUR ---
SHIFT SUMMARY PATIENT WITH NO ACUTE EVENTS DURING SHIFT. SHE IS UP TO CHAIR/COMMODE 1-2 PERSON ASSIST WITH GAIT BELT AND FWWW. BED IN LOW POSITION, CALL LIGHT IN REACH. PATIENT USES CALL LIGHT APPROPRIATELY.
[2024-02-04 20:10] VITALS: BP 138/57
[2024-02-05] VITALS (14 sets, daily range): BP systolic 117–156; BP diastolic 49–102
--- NOTE | 2024-02-05 05:06 | NUR ---
SHIFT SUMMARY. NO ACUTE CHANGES. PATIENT IS A 1-2P ASSIST TO THE BSC. PATIENT CALLS APPROPRIATELY AND IS ABLE TO MAKE HER NEEDS KNOWN. PATIENT IS NPO FOR PROCEDURE AT [employer] TODAY. PATIENT RESTING WITH RESPIRATIONS EQUAL AND UNLABORED. NO S/S OF DISTRESS NOTED. CARE IS ONGOING.
[2024-02-05 05:51] LABS: BASOPHILS ABSOLUTE AUTO 0.04 K/mm3 (0.00-0.23); BASOPHILS PERCENT AUTO 1 % (0-2); EOSINOPHILS ABSOLUTE AUTO 0.18 K/mm3 (0.00-0.68); EOSINOPHILS PERCENT AUTO 2 % (0-6); Hematocrit 34.4 % (33.0-51.0); Hemoglobin 11.4 g/dL (11.5-16.0); IMMATURE GRAN ABSOLUTE AUTO 0.03 K/mm3 (0.00-0.10); IMMATURE GRAN PERCENT AUTO 0 % (0-1); LYMPHOCYTES ABSOLUTE AUTO 1.46 K/mm3 (0.84-5.20); LYMPHOCYTES PERCENT AUTO 18 % (21-46); MONOCYTES ABSOLUTE AUTO 1.06 K/mm3 (0.16-1.47); MONOCYTES PERCENT AUTO 13 % (4-13); Mean Corpuscular HGB 30.6 pg (26.0-34.0); Mean Corpuscular HGB Conc 33.1 g/dL (31.5-36.5); Mean Corpuscular Volume 92 fL (80-100); NEUTROPHILS ABSOLUTE AUTO 5.54 K/mm3 (1.96-9.15); NEUTROPHILS PERCENT AUTO 67 % (41-73); Platelet Count 293 K/mm3 (150-400); RDW Coefficient Variation 14.8 % (11.7-14.2); Red Blood Cell Count 3.73 M/mm3 (3.80-5.20); White Blood Cell Count 8.31 K/mm3 (4.00-11.30)
[2024-02-05 06:21] LABS: Bun/Creatinine Ratio 31.7 (12.0-20.0); Calcium, Blood 9.2 mg/dL (8.5-10.1); Creatinine, Blood 1.26 mg/dL (0.40-1.00)
[2024-02-05] MEDS ORDERED: Verapamil HCL 2.5 MG/ML 2ML Injection ONE (08:53)
[2024-02-05] MEDS ORDERED: Heparin Sodium 1000 Units/ML 10ML MDV ONE (08:54)
[2024-02-05] MEDS ORDERED: FentaNYL Citrate 50 MCG/ML 2 ML Injection ONE (08:54)
[2024-02-05] MEDS ORDERED: NS 250 ML IV ONE (08:54)
[2024-02-05] MEDS ORDERED: Midazolam HCl 1MG / ML 2ML Vial ONE (08:54)
[2024-02-05] MEDS ORDERED: NS 2,000 ML IV ONE (08:54)
[2024-02-05] MEDS ORDERED: Tirofiban HCL Monohydrate 3.75 MG/15 ML Vial ONE (10:22)
[2024-02-05] MEDS ORDERED: Clopidogrel Bisulfate 75 MG Tab ONE (10:27)
--- NOTE | 2024-02-05 10:58 | NUR ---
PATIENT LEFT UNIT FOR EXPERIENCED TRUCK DRIVER AT 0938. RN TO RN REPORT GIVEN TO CLAUDIA IN PCU, RN AT 1050.
--- NOTE | 2024-02-05 16:01 | NUR ---
"Spiritual Care | Family support Pts. son is on 3rd floor looking for Pts. room in PCU. Son verbalized that he was from [place] as I escorted the son to the Pts. room."
--- NOTE | 2024-02-05 18:19 | NUR ---
ANGIOGRAM / END OF SHIFT PT BROUGHT TO PCU-09 BY BED FROM [facility] @ APPROX 1045 AFTER ANGIOGRAM. PT A&O X4. VSS. SPO2 > 92% ON RA. MONITOR SHOWING SR, HR 70s. PT W/ R RADIAL ACCESS SITE W/ TR BAND IN PLACE UPON ARRIVAL. SMALL AMOUNT OF BLEEDING NOTED IN BAND UPON PT ARRIVAL TO UNIT, ASSESSED W/ HC NURSES. PT THEN W/ NO FURTHER BLEEDING OR HEMATOMA & TR BAND RECOVERED WNL. TRB REMOVED & TRANSPARENT DRESSING APPLIED. ARM BOARD REMAINS IN PLACE.
[2024-02-06 03:56] VITALS: BP 141/67
[2024-02-06 04:23] LABS: BASOPHILS ABSOLUTE AUTO 0.05 K/mm3 (0.00-0.23); BASOPHILS PERCENT AUTO 1 % (0-2); EOSINOPHILS ABSOLUTE AUTO 0.16 K/mm3 (0.00-0.68); EOSINOPHILS PERCENT AUTO 2 % (0-6); Hemoglobin 10.9 g/dL (11.5-16.0); IMMATURE GRAN ABSOLUTE AUTO 0.04 K/mm3 (0.00-0.10); IMMATURE GRAN PERCENT AUTO 0 % (0-1); LYMPHOCYTES ABSOLUTE AUTO 1.99 K/mm3 (0.84-5.20); LYMPHOCYTES PERCENT AUTO 19 % (21-46); MONOCYTES ABSOLUTE AUTO 1.27 K/mm3 (0.16-1.47); MONOCYTES PERCENT AUTO 12 % (4-13); Mean Corpuscular HGB 31.5 pg (26.0-34.0); Mean Corpuscular Volume 95 fL (80-100); Mean Platelet Volume 11.2 fL (9.1-12.4); NEUTROPHILS ABSOLUTE AUTO 6.86 K/mm3 (1.96-9.15); NEUTROPHILS PERCENT AUTO 66 % (41-73); Platelet Count 274 K/mm3 (150-400); RDW Coefficient Variation 15.1 % (11.7-14.2); RDW Standard Deviation 52.8 fL (35.1-46.3); Red Blood Cell Count 3.46 M/mm3 (3.80-5.20); White Blood Cell Count 10.37 K/mm3 (4.00-11.30)
--- NOTE | 2024-02-06 06:30 | NUR ---
SHIFT SUMMARY PATIENT ALERT AND ORIENTED X4. 1 ASSIST GETTING UP TO THE BEDSIDE COMMODE. DENIES ANY CHEST PAIN AND SHORTNESS OF BREATH. PATIENT WAS ON ROOM AIR WITH SPO2 >90%. VITAL SIGNS STABLE, SINUS RHYTHM ON TELE. NO ACUTE ISSUSES NOTED OVERNIGHT. WILL CONTINUE TO MONITOR. CALL LIGHT WITHIN REACH.
[2024-02-06] MEDS ORDERED: Empagliflozin 10 MG TAB PO SCH (09:00)
[2024-02-06 09:04] VITALS: BP 140/67
[2024-02-06] MEDS ORDERED: TORSE20 PO (10:50)
[2024-02-06] MEDS ORDERED: JARDIANCE10 MG PO (10:51)
[2024-02-06] MEDS ORDERED: ATOR40TA PO (10:51)
[2024-02-06] MEDS ORDERED: CLOP75 PO (10:52)
[2024-02-06] MEDS ORDERED: LOSA50 PO (10:53)
[2024-02-06] MEDS ORDERED: CARV6.25 PO (10:55)
[2024-02-06] MEDS ORDERED: AMOCLA875 PO (10:56)
[2024-02-06 11:34] VITALS: BP 92/41
[2024-02-06 11:39] VITALS: BP 85/59
--- NOTE | 2024-02-06 12:45 | NUR ---
CALL TO MD / PLAN FOR DISCHARGE PT A&O X4. VSS. SPO2 > 92% ON RA. MONITOR SHOWING SR, HR 70s. CALL TO MD YUEN TO REPORT LOW BP THIS AFTERNOON. PT DENIES SYMPTOMS AND STATES "I FEEL FINE. I'M JUST READY TO GO." W/ CHANGES TO PT HOME BP MEDICATIONS, SEE MED REC. ALSO CONFIRMS PT STILL OKAY TO DISCHARGE TO SNF.
[2024-02-06 15:00] VITALS: BP 112/55
--- NOTE | 2024-02-06 16:27 | NUR ---
DISCHARGE NOTE: [facility] @ 15:50 [facility] WHEELCHAIR. PT LEFT WITH ALL PERSONAL BELONGINGS AND DISCHARGE PACKET. IV & PUREWICK WERE REMOVED AND PT LEFT WITH GOWN ON. NURSE WENT OVER DISCHARGE INSTRUCTIONS AND NEW MEDICATIONS WITH PT. R RADIAL ACCESS SITE WNL W/ TRANSPARENT DRESSING IN PLACE, C/D/I & ARM BOARD IN PLACE.
[2024-02-06 17:34] LABS: Bun/Creatinine Ratio 29.8 (12.0-20.0); Calcium, Blood 8.9 mg/dL (8.5-10.1); Creatinine, Blood 1.21 mg/dL (0.40-1.00); Potassium, Blood 3.8 mmol/L (3.5-5.5)
[2024-02-07] MEDS ORDERED: Pantoprazole Sodium 40 MG Tab PO SCH (06:00)
== END 2024-02-06 16:00 | DRG 321 ==
LOC: ER 15:23 → PCU 17:20 → ICUE 17:20 → MEDS 17:20 → ICUE 18:00 → PCU 02-01 11:08 → MEDS 02-03 02:40 → PCU 02-05 10:00
PROVIDERS: Emergency Medicine; Family Medicine; Hospitalist; Nurse Practitioner Acute Care; Student in an Organized Health Care Education/Training Program; ADMIT Internal Medicine
PROC: 027034Z Dilation of Coronary Artery, One Artery with Drug-eluting Intraluminal Device, Percutaneous Approach (ICD-10-PCS; principal; 2024-02-05)
PROC: 4A023N7 Measurement of Cardiac Sampling and Pressure, Left Heart, Percutaneous Approach (ICD-10-PCS; 2024-02-05)
PROC: B2111ZZ Fluoroscopy of Multiple Coronary Arteries using Low Osmolar Contrast (ICD-10-PCS; 2024-02-05)
DX: I21.4 Non-ST elevation (NSTEMI) myocardial infarction (principal); I50.43 Acute on chronic combined systolic (congestive) and diastolic (congestive) heart failure; J96.01 Acute respiratory failure with hypoxia; J81.0 Acute pulmonary edema; J96.02 Acute respiratory failure with hypercapnia; J18.9 Pneumonia, unspecified organism; N17.0 Acute kidney failure with tubular necrosis; N39.0 Urinary tract infection, site not specified; E87.29 Other acidosis; I11.0 Hypertensive heart disease with heart failure; E78.5 Hyperlipidemia, unspecified; E11.9 Type 2 diabetes mellitus without complications; I16.0 Hypertensive urgency; E83.41 Hypermagnesemia; D64.9 Anemia, unspecified; E87.6 Hypokalemia; K21.9 Gastro-esophageal reflux disease without esophagitis; D72.829 Elevated white blood cell count, unspecified; M10.9 Gout, unspecified; F17.210 Nicotine dependence, cigarettes, uncomplicated; Z91.148 Patient's other noncompliance with medication regimen for other reason; Z88.1 Allergy status to other antibiotic agents; Z88.5 Allergy status to narcotic agent; Z88.8 Allergy status to other drugs, medicaments and biological substances; Z79.82 Long term (current) use of aspirin; Z79.899 Other long term (current) drug therapy
CPT/HCPCS: 0241U; 36415; 51702; 71045; 76937; 80048; 80053; 81001; 82803; 82947; 83036; 83735; 83880; 84100; 84145; 84484; 85014; 85018; 85025; 85027; 85049; 85347; 85520; 85610; 87070; 87086; 87147; 87205; 87633; 93306; 93454; 93971; 94640; 94644; 94660; 94664; 94760; 94762; 96365-59; 96366-59; 96375-59; 97110; 97162; 97166; 97530; 97535; 99152; 99153; 99285-25; A9270; C1725; C1769; C1874; C1887; C1894; C9600; J0696; J1644; J1650; J1940; J2250; J2270; J3010; J3246; J7030; J7050; Q9967

== ENCOUNTER 2024-08-19 15:33 | Emergency (ER) | payer OTHER ==
[~2024-08-19] VITALS: Ht 162.6 cm; Wt 133.8 kg
[~2024-08-19 15:33] MED LIST changes: +ALLOPURINOL100 M1 PO; +AMOCLA875 PO; +ATOR40TA PO; +CARV6.25 PO; +CHLO25B PO; +CLOP75 PO; +JARDIANCE10 MG PO; +LOSA50 PO; +METFORMIN HCL500 M2 PO; +METOPROLOL SUCC25 MG PO; +Potassium Chlo20 ME1 PO; +Simvastatin20 MG PO; +TORSE20 PO
[2024-08-19 16:28] LABS: BASOPHILS ABSOLUTE AUTO 0.04 K/mm3 (0.00-0.23); BASOPHILS PERCENT AUTO 1 % (0-2); EOSINOPHILS ABSOLUTE AUTO 0.23 K/mm3 (0.00-0.68); EOSINOPHILS PERCENT AUTO 3 % (0-6); Hematocrit 40.5 % (33.0-51.0); Hemoglobin 12.9 g/dL (11.5-16.0); IMMATURE GRAN ABSOLUTE AUTO 0.02 K/mm3 (0.00-0.10); IMMATURE GRAN PERCENT AUTO 0 % (0-1); LYMPHOCYTES ABSOLUTE AUTO 1.66 K/mm3 (0.84-5.20); LYMPHOCYTES PERCENT AUTO 20 % (21-46); MONOCYTES ABSOLUTE AUTO 0.63 K/mm3 (0.16-1.47); MONOCYTES PERCENT AUTO 8 % (4-13); Mean Corpuscular HGB 30.5 pg (26.0-34.0); Mean Corpuscular HGB Conc 31.9 g/dL (31.5-36.5); Mean Corpuscular Volume 96 fL (80-100); Mean Platelet Volume 10.1 fL (9.1-12.4); NEUTROPHILS ABSOLUTE AUTO 5.76 K/mm3 (1.96-9.15); NEUTROPHILS PERCENT AUTO 69 % (41-73); Platelet Count 274 K/mm3 (150-400); RDW Standard Deviation 49.5 fL (35.1-46.3); Red Blood Cell Count 4.23 M/mm3 (3.80-5.20); White Blood Cell Count 8.34 K/mm3 (4.00-11.30)
[2024-08-19 16:53] LABS: Albumin, Blood 3.3 g/dL (3.4-5.0); Albumin/Globulin Ratio 0.7 (0.8-1.8); Bilirubin, Total 0.5 mg/dL (0.1-1.0); Bun/Creatinine Ratio 20.7 (12.0-20.0); Creatinine, Blood 0.96 mg/dL (0.40-1.00); Globulin, Blood 4.6 g/dL (2.2-4.0); Potassium, Blood 4.4 mmol/L (3.5-5.5); Total Protein, Blood 7.9 g/dL (6.4-8.2)
[2024-08-19] MEDS ORDERED: Cephalexin Monohydrate 500 MG Cap PO ONE (20:10)
[2024-08-19] MEDS ORDERED: CEPH500 PO (20:12)
[2024-08-19] MEDS ORDERED: MUPIROCIN111 TOP (20:12)
[2024-08-19 20:33] VITALS: BP 204/94
== END 2024-08-19 20:32 | disposition home or self-care (01) ==
LOC: ER 15:33
PROVIDERS: Physician Assistant
DX: L03.116 Cellulitis of left lower limb (principal); I87.2 Venous insufficiency (chronic) (peripheral); I10 Essential (primary) hypertension; E11.9 Type 2 diabetes mellitus without complications; F17.200 Nicotine dependence, unspecified, uncomplicated; Z79.02 Long term (current) use of antithrombotics/antiplatelets; Z79.82 Long term (current) use of aspirin; Z79.899 Other long term (current) drug therapy; Z88.5 Allergy status to narcotic agent; Z88.6 Allergy status to analgesic agent; Z88.8 Allergy status to other drugs, medicaments and biological substances
CPT/HCPCS: 80053; 85025; 99283; A9270

== ENCOUNTER 2024-10-30 12:38 | Observation (INO) | payer OTHER ==
[~2024-10-30] VITALS: Ht 157.5 cm; Wt 127.4 kg
[~2024-10-30 12:38] MED LIST changes: +CEPH500 PO; +MUPIROCIN111 TOP
[2024-10-30 13:30] LABS: BASOPHILS ABSOLUTE AUTO 0.04 K/mm3 (0.00-0.23); BASOPHILS PERCENT AUTO 1 % (0-2); EOSINOPHILS PERCENT AUTO 3 % (0-6); Hematocrit 35.2 % (33.0-51.0); Hemoglobin 11.4 g/dL (11.5-16.0); IMMATURE GRAN ABSOLUTE AUTO 0.03 K/mm3 (0.00-0.10); IMMATURE GRAN PERCENT AUTO 0 % (0-1); LYMPHOCYTES ABSOLUTE AUTO 1.43 K/mm3 (0.84-5.20); LYMPHOCYTES PERCENT AUTO 19 % (21-46); MONOCYTES ABSOLUTE AUTO 0.57 K/mm3 (0.16-1.47); MONOCYTES PERCENT AUTO 7 % (4-13); Mean Corpuscular HGB 31.3 pg (26.0-34.0); Mean Corpuscular HGB Conc 32.4 g/dL (31.5-36.5); Mean Corpuscular Volume 97 fL (80-100); NEUTROPHILS ABSOLUTE AUTO 5.39 K/mm3 (1.96-9.15); NEUTROPHILS PERCENT AUTO 70 % (41-73); Platelet Count 248 K/mm3 (150-400); RDW Coefficient Variation 14.9 % (11.7-14.2); RDW Standard Deviation 53.6 fL (35.1-46.3); Red Blood Cell Count 3.64 M/mm3 (3.80-5.20); White Blood Cell Count 7.66 K/mm3 (4.00-11.30)
[2024-10-30 13:58] LABS: Albumin, Blood 3.3 g/dL (3.4-5.0); Albumin/Globulin Ratio 0.8 (0.8-1.8); Bilirubin, Total 0.5 mg/dL (0.1-1.0); Bun/Creatinine Ratio 17.8 (12.0-20.0); Calcium, Blood 9.4 mg/dL (8.5-10.1); Creatinine, Blood 1.29 mg/dL (0.40-1.00); Globulin, Blood 4.3 g/dL (2.2-4.0); Potassium, Blood 4.3 mmol/L (3.5-5.5); Total Protein, Blood 7.6 g/dL (6.4-8.2)
[2024-10-30 14:45] LABS: Source, Urine Clean Catch
[2024-10-30 14:49] LABS: Appearance, Urine Hazy (Clear); Bilirubin, Urine Neg (Neg); Blood, Urine 3+ (Neg); Glucose Qualitative, Urine 4+ (Neg); Ketones, Urine Neg (Neg); Leukocyte Esterase, Urine 3+ (Neg); Nitrite, Urine Neg (Neg); Protein, Urine Neg (Neg); Specific Gravity, Urine 1.005 (1.003-1.022); Urobilinogen, Urine NORM (Normal); pH, Urine 6.5 (5.0-8.0)
[2024-10-30 14:56] LABS: Color, Urine No Color (P-Yellow)
[2024-10-30 15:01] LABS: Bacteria Mod /hpf; Squamous Epithelial Cells Rare /hpf (Few); White Blood Cells, Urine 25-50 /hpf (0-5)
[2024-10-30] MEDS ORDERED: CefTRIAXone Sodium 2,000 MG in NS 100 ML IV ONE (15:40)
[2024-10-30] MEDS ORDERED: NS 2,000 ML IV SCH (15:40)
[2024-10-30] MEDS ORDERED: Acetaminophen 500 MG Tab PO ONE (15:40)
[2024-10-30 15:46] LABS: CORONAVIRUS COVID-19 AG Negative (NEGATIVE); INFLUENZA A AG Negative (NEGATIVE); INFLUENZA B AG Negative (NEGATIVE)
[2024-10-30] MEDS ORDERED: NS 1,000 ML IV ONE (17:13)
[2024-10-30] MEDS ORDERED: HydrALAZINE HCl 20 MG / ML 1ML Vial IV PRN (19:00)
[2024-10-30] MEDS ORDERED: FLU VACC TS2024-25(6MOS UP)/PF 45 MCG/0.5 ML SYRINGE IM SCH (19:00)
[2024-10-30] MEDS ORDERED: Ondansetron HCl 2 MG / ML 2ML Vial IV PRN (19:00)
[2024-10-30] MEDS ORDERED: Acetaminophen 325 MG TABLET PO PRN (19:05)
[2024-10-30 20:01] LABS: Adenovirus F 40/41 Not Detected (NOT DETECT); Astrovirus Not Detected (NOT DETECT); Campylobacter Sp Not Detected (NOT DETECT); Cryptosporidium Not Detected (NOT DETECT); Cyclospora Cayetanensis Not Detected (NOT DETECT); E. Coli O157 Not Detected (NOT DETECT); Entamoeba Histolytica Not Detected (NOT DETECT); Enteroaggregative E. coli-EAEC Not Detected (NOT DETECT); Enteropathogenic E. coli-EPEC Not Detected (NOT DETECT); Enterotoxigenic E. coli-ETEC Not Detected (NOT DETECT); Giardia Lamblia Not Detected (NOT DETECT); Norovirus GI/GII Not Detected (NOT DETECT); Plesiomonas Shigelloides Not Detected (NOT DETECT); Rotavirus A Not Detected (NOT DETECT); Salmonella Sp Not Detected (NOT DETECT); Sapovirus Not Detected (NOT DETECT); Shiga Toxin-prod E. coli-STEC Not Detected (NOT DETECT); Shigella/Enteroin E. coli-EIEC Not Detected (NOT DETECT); Vibrio Cholerae Not Detected (NOT DETECT); Vibrio Sp Not Detected (NOT DETECT); Yersinia Enterocolitica Not Detected (NOT DETECT)
[2024-10-30] MEDS ORDERED: Lactobacil 2-S.Thermo-Bifido 1 1 Cap PO SCH (21:00)
[2024-10-30] MEDS ORDERED: Insulin Human Lispro 100 Units/ML 3ML Syringe SC SCH (21:00)
[2024-10-30] MEDS ORDERED: GABA100 PO (21:18)
[2024-10-30 21:41] VITALS: BP 170/73
[2024-10-31] VITALS (7 sets, daily range): BP systolic 114–179; BP diastolic 57–86
--- NOTE | 2024-10-31 02:29 | NUR ---
ADMIT NOTE HANDOFF RECEIVED FROM PRACTICE LEADDAYTON CEDILLO. PT ARRIVED TO FLOOR VIA GURNEY. PT ORIENTED TO UNIT. CALL BUTTON WITHIN REACH. PERSONAL POSSESSIONS WITH PT.
--- NOTE | 2024-10-31 04:18 | NUR ---
SHIFT SUMMARY ADMITTED THIS SHIFT FOR UTI/SEPSIS. FULL CODE. BLOOD CX HAVE BEEN SENT. ACHS - LOW SS. STOOL PANEL & RESPIRATORY PANEL - BOTH NEGATIVE. SHE IS INCONTINENT, PUREWICK IN PLACE. DAILY WEIGHTS. ADA DIET. SHE IS A&O X4. SHE WALKS WITH A FWW & CANE AT HOME. IV HYDRALAZINE GIVEN FOR HTN. HX: CHF, NSTEMI & PCI 2023.
[2024-10-31] MEDS ORDERED: Pantoprazole Sodium 20 MG Tab PO SCH (06:00)
[2024-10-31] MEDS ORDERED: Omeprazole 20 MG CapCR PO SCH (06:00)
[2024-10-31 06:22] LABS: BASOPHILS ABSOLUTE AUTO 0.03 K/mm3 (0.00-0.23); BASOPHILS PERCENT AUTO 0 % (0-2); EOSINOPHILS ABSOLUTE AUTO 0.23 K/mm3 (0.00-0.68); EOSINOPHILS PERCENT AUTO 3 % (0-6); Hematocrit 32.8 % (33.0-51.0); Hemoglobin 10.6 g/dL (11.5-16.0); IMMATURE GRAN ABSOLUTE AUTO 0.03 K/mm3 (0.00-0.10); IMMATURE GRAN PERCENT AUTO 0 % (0-1); LYMPHOCYTES ABSOLUTE AUTO 1.52 K/mm3 (0.84-5.20); LYMPHOCYTES PERCENT AUTO 21 % (21-46); MONOCYTES ABSOLUTE AUTO 0.59 K/mm3 (0.16-1.47); MONOCYTES PERCENT AUTO 8 % (4-13); Mean Corpuscular HGB 30.9 pg (26.0-34.0); Mean Corpuscular HGB Conc 32.3 g/dL (31.5-36.5); Mean Corpuscular Volume 96 fL (80-100); Mean Platelet Volume 10.3 fL (9.1-12.4); NEUTROPHILS PERCENT AUTO 67 % (41-73); Platelet Count 243 K/mm3 (150-400); RDW Standard Deviation 52.2 fL (35.1-46.3); Red Blood Cell Count 3.43 M/mm3 (3.80-5.20)
[2024-10-31 06:50] LABS: Albumin, Blood 2.7 g/dL (3.4-5.0); Albumin/Globulin Ratio 0.8 (0.8-1.8); Bilirubin, Total 0.4 mg/dL (0.1-1.0); Bun/Creatinine Ratio 18.8 (12.0-20.0); Calcium, Blood 8.5 mg/dL (8.5-10.1); Creatinine, Blood 1.17 mg/dL (0.40-1.00); Globulin, Blood 3.5 g/dL (2.2-4.0); Magnesium, Blood 1.9 mg/dL (1.6-2.4); Potassium, Blood 3.5 mmol/L (3.5-5.5); Total Protein, Blood 6.2 g/dL (6.4-8.2)
[2024-10-31] MEDS ORDERED: Carvedilol 6.25 MG Tab PO SCH (08:00)
[2024-10-31] MEDS ORDERED: Potassium Chloride 20 MEQ TabCR PO SCH (09:00)
[2024-10-31] MEDS ORDERED: Losartan Potassium 25 MG Tab PO SCH (09:00)
[2024-10-31] MEDS ORDERED: Allopurinol 100 MG Tab PO SCH (09:00)
[2024-10-31] MEDS ORDERED: Clopidogrel Bisulfate 75 MG Tab PO SCH (09:00)
[2024-10-31] MEDS ORDERED: Enoxaparin 40 MG/0.4 ML SYR SC SCH (09:00)
[2024-10-31] MEDS ORDERED: Aspirin 81 MG Chew PO SCH (09:00)
[2024-10-31] MEDS ORDERED: Atorvastatin 40 MG Tab PO SCH (09:00)
[2024-10-31] MEDS ORDERED: Empagliflozin 10 MG TAB PO SCH (09:00)
[2024-10-31] MEDS ORDERED: Torsemide 20 MG TAB PO SCH (09:00)
[2024-10-31] MEDS ORDERED: CefTRIAXone Sodium 1,000 MG in NS 100 ML IV SCH (18:00)
[2024-10-31] MEDS ORDERED: NS 250 ML IV PRN (18:25)
--- NOTE | 2024-10-31 19:21 | NUR ---
SHIFT SUMMARY- PT HAS HAD NO ACUTE CHANGE T/O THE SHIFT. SHE IS CURRENTLY RUNNING IV ABX. PT REQUESTED TO USE THE BATHROOM AND WAS ASSISTED 1PA TO THE BSC. SHE WAS ATTEMPTING TO HAVE A BM AT THE TIME OF BEDSIDE REPORT, NO S&S OF DISTRESS NOTED. CALL LIGHT IN REACH.
--- NOTE | 2024-11-01 03:34 | NUR ---
Pt here for flank pain, hyperglycemia, and increased confusion. Pt is A&O x3. She is impulsive and does have short term memory recall issues. VS WNL, incontinent of urine, up to BSC for BM x3 this shift. BG covered at HS. Is unsteady and requires assist to get OOB, awaiting PT/OT eval. Pt c/o pain and was medicated with tylenol. edema present in bilat LE's. Used k-pad throughout night, states it's her hip that hurts.
[2024-11-01 03:48] VITALS: BP 159/81
[2024-11-01 06:07] LABS: Bun/Creatinine Ratio 17.5 (12.0-20.0); Calcium, Blood 9.4 mg/dL (8.5-10.1); Creatinine, Blood 1.26 mg/dL (0.40-1.00); Potassium, Blood 3.7 mmol/L (3.5-5.5)
[2024-11-01 07:20] VITALS: BP 191/90
[2024-11-01 14:57] VITALS: BP 162/76
[2024-11-01 18:00] VITALS: BP 164/82
--- NOTE | 2024-11-01 18:17 | NUR ---
SHIFT SUMMARY- PT CONTINUES TO VOID CONTINUIOUSLY. SHE HAS A PUREWICK IN PLACE TO PREVENT THE NEED FOR FREQUENT LINNEN CHANGES. THE PT HAS C/O HIP PAIN, SHE SAYS RIGHT AND INDICATES LEFT, SHE HAS BEEN USING A HEATING PAD WHEN SHE IS IN BED. SHE WAS MEDICATED WITH TYLENOL AND STATED "IT HELPED A LITTLE." PT WAS UP AND DOWN A LOT THIS SHIFT (ABOUT EVERY 15 MINUTES) SHE WENT TO THE BATHROOM TO HAVE A BM AND SAT FOR 1 MINUTE THEN WAS SAYING SHE WAS READY TO GET UP, WHEN ASKED IF SHE WAS DONE SHE SAID "WELL I'M NOT SURE" SHE REQUIRED STAFF TO INSIST THAT SHE WAS STILL POOPING AND REMINDING HER THAT SHE WAS SUPPOSED TO BE POOPING TO ATTEMPT THE TASK. SHE WAS STILL UNABLE TO COMPLETE THE BM. STATING IT WAS "JUST NOT COMING OUT" WHEN STAFF PROVIDED [facility] THERE WAS SOFT STOOL NOTED AT THE RECTUM. PT HAS ATTENDS IN PLACE, WITH A LINNER AND A PUREWICK TO ATTEMPT TO CATCH THE MAJORITY OF THE URINE OUTPUT. PT WORKED WITH PHYSICAL THERAPY AND THE RECOMENDATION WAS SNF. PT IN BED AT THIS TIME SITTING UP EATING HER DINNER, IV ABX INFUSING IN THE RIGHT AC IV, DRESSING WAS CHANGED IN THE IV EARLIER IN THE SHIFT D/T BLEEDING, DRESSING IS NOTED TO BE A LITTLE BLOODY THIS EVENING, FLUSHES WELL W/O DIFFICULTY AND PT DENIES PAIN WITH THE IV FLUSH. SPOKE TO DR MOREJON THIS EVENING PRIOR TO HANING THE IV ABX. PLAN IS TO CONTINUE THE ABX AT THIS TIME. CALL LIGHT IN REACH NOPP S&S OF DISTRESS NOTED. WILL PASS ON IN BEDSIDE REPORT.
[2024-11-01 19:46] VITALS: BP 137/74
[2024-11-02 02:41] VITALS: BP 117/60
[2024-11-02 07:11] VITALS: BP 174/83
[2024-11-02] MEDS ORDERED: Insulin Human Lispro 100 Units/ML 3ML Syringe SC SCH (11:30)
[2024-11-02 11:32] VITALS: BP 128/69
[2024-11-02 15:37] VITALS: BP 142/72
--- NOTE | 2024-11-02 18:28 | NUR ---
SHIFT SUMMARY PT AOX3-4, CALLS AND MAKES HER NEEDS KNOWN. 1 ASSIST TO THE BR USING HER CANE AND THE FWW. REPOSITIONED THROUGHOUT THE SHIFT. UP TO THE CHAIR FOR MEALS. PT MEDICATED FOR PAIN PER THE EMAR. NO OTHER COMPLAINTS. CALL LIGHT WITHIN REACH, BED LOCKED AND IN THE LOWEST POSITION, WILL REPORT TO ONCOMING NURSE.
[2024-11-02 20:37] VITALS: BP 128/68
[2024-11-03 04:25] VITALS: BP 174/81
--- NOTE | 2024-11-03 05:59 | NUR ---
NOC SUMMARY- NO NEW ISSUES NOTED. PT HAS BEEN ABLE TO VOID VIA BSC. PT HAD MULTIPLE INCONTINENT VOIDS WHILE SLEEPING AND BRIEF WAS CHANGED NEEDED. PT HAS BEEN CALLING APPROPIATELY. PT CONTINUES TO USE K PAD FOR RELIEF TO RIGHT HIP AREA. CALL LIGHT IN REACH AND BED ALARM.
[2024-11-03 07:24] VITALS: BP 148/72
[2024-11-03] MEDS ORDERED: Polyethylene Glycol 3350 17 gm PO PRN (08:15)
[2024-11-03 08:57] LABS: Calcium, Blood 8.9 mg/dL (8.5-10.1); Creatinine, Blood 1.39 mg/dL (0.40-1.00); Potassium, Blood 3.6 mmol/L (3.5-5.5)
[2024-11-03] MEDS ORDERED: Insulin Glargine-Yfgn 100 Unit/mL 3 ML SYR SC SCH (09:00)
[2024-11-03] MEDS ORDERED: Acetaminophen 500 MG Tab PO SCH (09:00)
[2024-11-03] MEDS ORDERED: ACET500 PO (12:44)
[2024-11-03] MEDS ORDERED: ASPI81CH PO (12:44)
[2024-11-03] MEDS ORDERED: BASAGLAR K100 UNIT/1 SC (12:45)
[2024-11-03] MEDS ORDERED: MIRALAX17 GM PO (12:45)
[2024-11-03] MEDS ORDERED: MICONAZOLE NITR85 GM TOP (12:47)
--- NOTE | 2024-11-03 14:30 | NUR ---
DISCHARGE NOTE PT DISCHARGED TO HOME, PICKED UP BY HER SON. IV NOT IN PLACE. DISCHARGE EDUCATION AND INFORMATION PROVIDED. MEDICATIONS FAXED TO THE PHARMACY OF HER CHOICE.
[2024-11-03] MEDS ORDERED: MetFORMIN HCl 500 mg PO SCH (17:00)
== END 2024-11-03 13:00 | disposition home health service (06) ==
LOC: ER 12:38 → ERHOLD 12:39 → MEDS 12:39
PROVIDERS: Emergency Medicine; Internal Medicine; Student in an Organized Health Care Education/Training Program; ADMIT Student in an Organized Health Care Education/Training Program
DX: N39.0 Urinary tract infection, site not specified (principal); R32 Unspecified urinary incontinence; E87.20 Acidosis, unspecified; I13.0 Hypertensive heart and chronic kidney disease with heart failure and stage 1 through stage 4 chronic kidney disease, or unspecified chronic kidney disease; E11.22 Type 2 diabetes mellitus with diabetic chronic kidney disease; N18.30 Chronic kidney disease, stage 3 unspecified; I50.42 Chronic combined systolic (congestive) and diastolic (congestive) heart failure; N17.9 Acute kidney failure, unspecified; N94.89 Other specified conditions associated with female genital organs and menstrual cycle; I25.10 Atherosclerotic heart disease of native coronary artery without angina pectoris; E78.5 Hyperlipidemia, unspecified; K21.9 Gastro-esophageal reflux disease without esophagitis; M10.9 Gout, unspecified; F17.210 Nicotine dependence, cigarettes, uncomplicated; Z88.1 Allergy status to other antibiotic agents; Z88.5 Allergy status to narcotic agent; Z88.6 Allergy status to analgesic agent; Z88.8 Allergy status to other drugs, medicaments and biological substances; Z79.82 Long term (current) use of aspirin; Z79.84 Long term (current) use of oral hypoglycemic drugs; Z79.02 Long term (current) use of antithrombotics/antiplatelets; Z79.899 Other long term (current) drug therapy; Z95.5 Presence of coronary angioplasty implant and graft
CPT/HCPCS: 36415; 71045; 74177; 80048; 80053; 81001; 82947; 83036; 83605; 83735; 85025; 87040; 87086; 87428-QW; 87507; 93005; 93010; 96361; 96365-59; 96366; 96372; 96375; 97110; 97116; 97162; 97165; 97530; 99285-25; A9270; G0378; J0360; J0696; J1650; J1815; J2470; J7030; J7050; P9612; Q9967

== ENCOUNTER 2024-11-18 14:36 | Emergency (ER) | payer OTHER ==
[~2024-11-18] VITALS: Ht 167.6 cm; Wt 136.0 kg
[~2024-11-18 14:36] MED LIST changes: +ACET500 PO; +BASAGLAR K100 UNIT/1 SC; +GABA100 PO; +MICONAZOLE NITR85 GM TOP; +MIRALAX17 GM PO
[2024-11-18 14:43] VITALS: BP 195/80
== END 2024-11-18 17:43 | disposition home or self-care (01) ==
LOC: ER 14:36
DX: I83.892 Varicose veins of left lower extremity with other complications (principal); I10 Essential (primary) hypertension; E11.9 Type 2 diabetes mellitus without complications; F17.200 Nicotine dependence, unspecified, uncomplicated; Z79.4 Long term (current) use of insulin; Z79.02 Long term (current) use of antithrombotics/antiplatelets; Z79.82 Long term (current) use of aspirin; Z79.84 Long term (current) use of oral hypoglycemic drugs; Z79.899 Other long term (current) drug therapy; Z88.1 Allergy status to other antibiotic agents; Z88.5 Allergy status to narcotic agent; Z88.6 Allergy status to analgesic agent; Z88.8 Allergy status to other drugs, medicaments and biological substances
CPT/HCPCS: 99283

== ENCOUNTER 2025-01-17 14:24 | Emergency (ER) | payer OTHER ==
[~2025-01-17] VITALS: Ht 162.6 cm; Wt 136.1 kg
[2025-01-17 15:11] LABS: BASOPHILS ABSOLUTE AUTO 0.04 K/mm3 (0.00-0.23); BASOPHILS PERCENT AUTO 1 % (0-2); EOSINOPHILS ABSOLUTE AUTO 0.27 K/mm3 (0.00-0.68); EOSINOPHILS PERCENT AUTO 3 % (0-6); Hematocrit 35.5 % (33.0-51.0); Hemoglobin 11.6 g/dL (11.5-16.0); IMMATURE GRAN ABSOLUTE AUTO 0.02 K/mm3 (0.00-0.10); IMMATURE GRAN PERCENT AUTO 0 % (0-1); LYMPHOCYTES ABSOLUTE AUTO 1.32 K/mm3 (0.84-5.20); LYMPHOCYTES PERCENT AUTO 17 % (21-46); MONOCYTES ABSOLUTE AUTO 0.61 K/mm3 (0.16-1.47); MONOCYTES PERCENT AUTO 8 % (4-13); Mean Corpuscular HGB 31.2 pg (26.0-34.0); Mean Corpuscular HGB Conc 32.7 g/dL (31.5-36.5); Mean Corpuscular Volume 95 fL (80-100); Mean Platelet Volume 10.1 fL (9.1-12.4); NEUTROPHILS ABSOLUTE AUTO 5.65 K/mm3 (1.96-9.15); NEUTROPHILS PERCENT AUTO 71 % (41-73); Platelet Count 268 K/mm3 (150-400); RDW Coefficient Variation 14.6 % (11.7-14.2); RDW Standard Deviation 50.9 fL (35.1-46.3); Red Blood Cell Count 3.72 M/mm3 (3.80-5.20); White Blood Cell Count 7.91 K/mm3 (4.00-11.30)
[2025-01-17 15:27] LABS: Albumin, Blood 3.1 g/dL (3.4-5.0); Albumin/Globulin Ratio 0.7 (0.8-1.8); Bilirubin, Total 0.4 mg/dL (0.1-1.0); Bun/Creatinine Ratio 25.4 (12.0-20.0); Creatinine, Blood 1.18 mg/dL (0.40-1.00); Globulin, Blood 4.2 g/dL (2.2-4.0); Potassium, Blood 3.9 mmol/L (3.5-5.5); Total Protein, Blood 7.3 g/dL (6.4-8.2)
[2025-01-17 15:51] LABS: Source, Urine Clean Catch
[2025-01-17 15:54] LABS: Bilirubin, Urine Neg (Neg); Blood, Urine Neg (Neg); Glucose Qualitative, Urine 4+ (Neg); Ketones, Urine Neg (Neg); Leukocyte Esterase, Urine 2+ (Neg); Nitrite, Urine Neg (Neg); Protein, Urine Neg (Neg); Urobilinogen, Urine NORM (Normal)
[2025-01-17 16:03] LABS: Appearance, Urine Clear (Clear); Color, Urine Pale Yellow (P-Yellow)
[2025-01-17 16:04] LABS: Bacteria Few /hpf; Red Blood Cells, Urine Not Seen /hpf (0-2); Squamous Epithelial Cells Not Seen /hpf (Few)
[2025-01-17 16:15] LABS: U Amphetamine Screen Not Detected; U Barbituate Screen Not Detected; U Benzodiazapine Screen Not Detected; U Buprenorphine Screen Not Detected; U Cannabinoids Screen Not Detected; U Cocaine Screen Not Detected; U Methadone Screen Not Detected; U Methamphetamine Screen Not Detected; U Opiates Screen Not Detected; U Oxycodone Screen Not Detected; U Phencyclidine Screen Not Detected
[2025-01-17] MEDS ORDERED: CEPH500 PO (16:47)
[2025-01-17 18:01] VITALS: BP 171/73
== END 2025-01-17 18:02 | disposition home or self-care (01) ==
LOC: ER 14:24
PROVIDERS: Emergency Medicine
DX: N39.0 Urinary tract infection, site not specified (principal); R53.1 Weakness; I10 Essential (primary) hypertension; F17.210 Nicotine dependence, cigarettes, uncomplicated; Z79.4 Long term (current) use of insulin; Z79.82 Long term (current) use of aspirin; Z79.01 Long term (current) use of anticoagulants; Z79.84 Long term (current) use of oral hypoglycemic drugs; Z79.899 Other long term (current) drug therapy
CPT/HCPCS: 80053; 81001; 85025; 87086; 93005; 93010; 99285-25